=== PATIENT | male | born 1965 | race Caucasian/White ===

== ENCOUNTER 2016-04-16 13:29 | Emergency (ER) | payer OTHER ==
--- NOTE | 2016-04-16 14:36 | REP ---
Clinical: Trauma . Comparison: None . Findings: The ventricles, sulci, and cisterns are normal in position and appearance. Brand-white differentiation is maintained. No acute intracranial hemorrhage, mass/mass effect, pathology or trauma/injury. No evidence for acute infarction. No extra-axial fluid collection. Calvarium is intact. Paranasal sinuses and mastoid air cells are clear. Impression: Normal noncontrast head CT. No evidence for acute intracranial pathology or trauma/injury. Signed by Skyler Villanueva MD 04/16/2016 02:27 P
--- NOTE | 2016-04-16 14:37 | REP ---
Clinical: Trauma. Technique: Axial noncontrast images from the skull base to the thoracic inlet with coronal and sagittal re-formations. Findings: Alignment and lordosis maintained. No acute fracture / compression injury or subluxation. Moderate multilevel degenerative changes include anterior osteophytes with endplate sclerosis and minimal disc space narrowing primarily involving the C4-5, C5-6, C6-7 levels as well as the C3-4 level. Spinal canal is patent posterior elements and spinous processes are intact. Paravertebral soft tissues are normal. Impression: Moderate to early advanced multilevel degenerative changes. No acute fracture / compression injury or subluxation. Signed by Skyler Villanueva MD 04/16/2016 02:29 P
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
--- NOTE | 2016-04-16 14:57 | EDDOCDS ---
Physician Documentation [facility] Name: Juan Costello Age: 50 yrs Sex: Male : 1965 Arrival Date: 04/16/2016 Time: 13:29 Bed TR8 Private MD: Disposition: 04/16/16 14:49 Discharged to Home/Self Care. Impression: Postconcussional syndrome, Strain of muscle, fascia and tendon at neck level. - Condition is Stable. - Discharge Instructions: Post-Concussion Syndrome, Cervical Sprain. - Prescriptions for Naprosyn 500 mg Oral Tablet - take 1 tablet by ORAL route 2 times per day take with food; 30 tablet. - Medication Reconciliation form. - Follow up: Ruth Ann Lora MD; When: Call to arrange an appointment; Reason: Recheck today's complaints, Continuance of care, To establish care. Follow up: Desmond Decker; When: Call to arrange an appointment; Reason: Recheck today's complaints, Continuance of care, To establish care. - Problem is an ongoing problem. - Symptoms are unchanged. Historical: - Allergies: No known drug Allergies; - Home Meds: 1. bee pollen oral cap daily (Last dose: 04/16/2016 08:00) 2. Aleve 220 mg Oral tab (Last dose: 04/15/2016) 3. tizanidine 2 mg oral cap nightly (prescribed to take up to 4 x/day) for Muscle Spasm &#13(Last dose: 04/15/2016 20:00) - PMHx: none; - PSHx: plastic surgery to face as child; - Social history: Smoking status: Patient states was never smoker of tobacco. Patient uses alcohol weekly. Patient/guardian denies using street drugs, No barriers to communication noted, The patient speaks fluent Chinese, Speaks appropriately for age. - Family history: Not pertinent. - : The pt / caregiver states he / she is not on anticoagulants. Home medication list is obtained from the patient. - Exposure Risk Screening:: None identified. Vital Signs: 04/16 13:31 BP 162 / 95; Pulse 81; Resp 18; Temp 96.3(O); Pulse Ox 100% ; Weight 72.57 kg / 159.99 lr2 lbs (R); Height 5 ft. 5 in. (165.10 cm) (R); Pain 6/10; 14:50 BP 144 / 98; Pulse 58; Resp 18; Temp 99.2(TE); Pulse Ox 99% on R/A; Pain 6/10; ar3 13:31 Body Mass Index 26.62 (72.57 kg, 165.10 cm) lr2 MDM: 14:16 CT Head Without Contrast Ordered. EDMS 14:17 CT Spine,Cervical W/o Contrast Ordered. EDMS Signatures: Dispatcher [employer] EDMS Maida Madden, RN RN ttb Garrett Chopra, PA-C PA-C cc10 Dinora Escobar,RN RN ms18 MTDD
--- NOTE | 2016-04-18 15:57 | EDDOCDS ---
Physician Documentation [facility] Name: Juan Costello Age: 50 yrs Sex: Male : 1965 Arrival Date: 04/16/2016 Time: 13:29 Bed TR8 Private MD: Disposition: 04/16/16 14:49 Discharged to Home/Self Care. Impression: Postconcussional syndrome, Strain of muscle, fascia and tendon at neck level. - Condition is Stable. - Discharge Instructions: Post-Concussion Syndrome, Cervical Sprain. - Prescriptions for Naprosyn 500 mg Oral Tablet - take 1 tablet by ORAL route 2 times per day take with food; 30 tablet. - Medication Reconciliation form. - Follow up: Ruth Ann Lora MD; When: Call to arrange an appointment; Reason: Recheck today's complaints, Continuance of care, To establish care. Follow up: Desmond Decker; When: Call to arrange an appointment; Reason: Recheck today's complaints, Continuance of care, To establish care. - Problem is an ongoing problem. - Symptoms are unchanged. Historical: - Allergies: No known drug Allergies; - Home Meds: 1. bee pollen oral cap daily (Last dose: 04/16/2016 08:00) 2. Aleve 220 mg Oral tab (Last dose: 04/15/2016) 3. tizanidine 2 mg oral cap nightly (prescribed to take up to 4 x/day) for Muscle Spasm &#13(Last dose: 04/15/2016 20:00) - PMHx: none; - PSHx: plastic surgery to face as child; - Social history: Smoking status: Patient states was never smoker of tobacco. Patient uses alcohol weekly. Patient/guardian denies using street drugs, No barriers to communication noted, The patient speaks fluent Mosotho, Speaks appropriately for age. - Family history: Not pertinent. - : The pt / caregiver states he / she is not on anticoagulants. Home medication list is obtained from the patient. - Exposure Risk Screening:: None identified. Vital Signs: 04/16 13:31 BP 162 / 95; Pulse 81; Resp 18; Temp 96.3(O); Pulse Ox 100% ; Weight 72.57 kg / 159.99 lr2 lbs (R); Height 5 ft. 5 in. (165.10 cm) (R); Pain 6/10; 14:50 BP 144 / 98; Pulse 58; Resp 18; Temp 99.2(TE); Pulse Ox 99% on R/A; Pain 6/10; ar3 13:31 Body Mass Index 26.62 (72.57 kg, 165.10 cm) lr2 MDM: 14:16 CT Head Without Contrast Ordered. EDMS 14:17 CT Spine,Cervical W/o Contrast Ordered. EDMS 14:59 [facility] Payment Agreement was scanned into [employer] and attached to record. jp5 14: Financial registration complete. jp5 14: [facility] was scanned into [employer] and attached to record. jp5 14: Undo -Financial registration. jp5 Financial registration complete. jp5 04/17 10:14 T-Sheet-- Draft Copy was scanned into [employer] and attached to record. gb Signatures: Dispatcher [employer] EDIN Miracle Li, Reg Reg gb Maida Madden, RN RN ttb Garrett Chopra PA-C PA-C cc10 Dinora Escobar,RN RN ms18 Sofía Griffin jp5 The chart was reviewed and I authenticate all verbal orders and agree with the evaluation and treatment provided.Attachments: 04/16 14:59 [facility] Payment Agreement jp5 04/17 10:14 T-Sheet-- Draft Copy gb Chart Complete MTDD
--- NOTE | 2016-04-18 15:57 | EDDOCDS ---
Physician Documentation [facility] Name: Juan Costello Age: 50 yrs Sex: Male : 1965 Arrival Date: 04/16/2016 Time: 13:29 Bed TR8 Private MD: Disposition: 04/16/16 14:49 Discharged to Home/Self Care. Impression: Postconcussional syndrome, Strain of muscle, fascia and tendon at neck level. - Condition is Stable. - Discharge Instructions: Post-Concussion Syndrome, Cervical Sprain. - Prescriptions for Naprosyn 500 mg Oral Tablet - take 1 tablet by ORAL route 2 times per day take with food; 30 tablet. - Medication Reconciliation form. - Follow up: Ruth Ann Lora MD; When: Call to arrange an appointment; Reason: Recheck today's complaints, Continuance of care, To establish care. Follow up: Desmond Decker; When: Call to arrange an appointment; Reason: Recheck today's complaints, Continuance of care, To establish care. - Problem is an ongoing problem. - Symptoms are unchanged. Historical: - Allergies: No known drug Allergies; - Home Meds: 1. bee pollen oral cap daily (Last dose: 04/16/2016 08:00) 2. Aleve 220 mg Oral tab (Last dose: 04/15/2016) 3. tizanidine 2 mg oral cap nightly (prescribed to take up to 4 x/day) for Muscle Spasm &#13(Last dose: 04/15/2016 20:00) - PMHx: none; - PSHx: plastic surgery to face as child; - Social history: Smoking status: Patient states was never smoker of tobacco. Patient uses alcohol weekly. Patient/guardian denies using street drugs, No barriers to communication noted, The patient speaks fluent Icelandic, Speaks appropriately for age. - Family history: Not pertinent. - : The pt / caregiver states he / she is not on anticoagulants. Home medication list is obtained from the patient. - Exposure Risk Screening:: None identified. Vital Signs: 04/16 13:31 BP 162 / 95; Pulse 81; Resp 18; Temp 96.3(O); Pulse Ox 100% ; Weight 72.57 kg / 159.99 lr2 lbs (R); Height 5 ft. 5 in. (165.10 cm) (R); Pain 6/10; 14:50 BP 144 / 98; Pulse 58; Resp 18; Temp 99.2(TE); Pulse Ox 99% on R/A; Pain 6/10; ar3 13:31 Body Mass Index 26.62 (72.57 kg, 165.10 cm) lr2 MDM: 14:16 CT Head Without Contrast Ordered. EDMS 14:17 CT Spine,Cervical W/o Contrast Ordered. EDMS 14:59 [facility] Payment Agreement was scanned into [employer] and attached to record. jp5 14: Financial registration complete. jp5 14: [facility] was scanned into [employer] and attached to record. jp5 14: Undo -Financial registration. jp5 Financial registration complete. jp5 04/17 10:14 T-Sheet-- Draft Copy was scanned into 1,2,3 [employer] and attached to record. gb Signatures: Dispatcher [employer] EDAR Miracle Li, Reg Reg gb Maida Madden, RN RN ttb Garrett Chopra PA-C PA-C cc10 Dinora Escobar,RN RN ms18 Sofía Griffin jp5 The chart was reviewed and I authenticate all verbal orders and agree with the evaluation and treatment provided.Attachments: 04/16 14:59 [facility] Payment Agreement jp5 04/17 10:14 T-Sheet-- Draft Copy gb Chart Complete MTDD
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
== END 2016-04-16 14:56 | disposition home or self-care (01) ==
LOC: M ED 13:29
DX: S16.1XXA Strain of muscle, fascia and tendon at neck level, initial encounter (principal); V49.40XA Driver injured in collision with unspecified motor vehicles in traffic accident, initial encounter; Y92.410 Unspecified street and highway as the place of occurrence of the external cause; Y93.89 Activity, other specified; Y99.8 Other external cause status; F07.81 Postconcussional syndrome

== ENCOUNTER → 2016-05-22 | Outpatient (REF) | payer OTHER ==
[2016-05-22 20:07] LABS: FREE T4 0.93 NG/DL (0.76-1.46); TOTAL PROTEIN 7.8 GM/DL (6.4-8.2)
[2016-05-24 12:12] LABS: ALBUMIN 4.63 GM/DL (3.29-5.55); ALBUMIN % 59.4 % (55.8-66.1); GAMMA GLOBULIN % 17.1 % (11.1-18.8)
== END ==
LOC: M LABNEURO 17:01
PROVIDERS: ATTEND Psychiatry & Neurology Neurology
DX: I73.9 Peripheral vascular disease, unspecified (principal); G89.29 Other chronic pain; M54.2 Cervicalgia; M54.5 Low back pain

== ENCOUNTER → 2017-01-08 | Outpatient (CLI) | payer OTHER ==
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
== END ==
LOC: M PAIN 09:30
PROVIDERS: ATTEND Nurse Practitioner Family
DX: G89.29 Other chronic pain (principal); M51.26 Other intervertebral disc displacement, lumbar region; M54.16 Radiculopathy, lumbar region; M46.96 Unspecified inflammatory spondylopathy, lumbar region; K21.9 Gastro-esophageal reflux disease without esophagitis; Z79.899 Other long term (current) drug therapy

== ENCOUNTER → 2017-02-06 | Outpatient (CLI) | payer OTHER ==
[~2017-02-06] MED LIST: BUPIVACAINE HCL 0.25% 30 ML VIAL As Ordered; ISOVUE-M 300 61% 15ML VIAL (Q9967) As Ordered; LIDOCAINE 1% SDV INJ 30 ML VIAL As Ordered; TRIAMCINOLONE ACETONIDE SUSP 40 MG/ML VIAL (J3301) As Ordered
== END ==
LOC: M PAIN 08:45
DX: G89.29 Other chronic pain (principal); M47.816 Spondylosis without myelopathy or radiculopathy, lumbar region; M47.817 Spondylosis without myelopathy or radiculopathy, lumbosacral region
CPT/HCPCS: J3301

== ENCOUNTER → 2017-02-21 | Outpatient (CLI) | payer OTHER | LOC: M PAIN 10:00 | DX: M47.816 Spondylosis without myelopathy or radiculopathy, lumbar region (principal); M47.817 Spondylosis without myelopathy or radiculopathy, lumbosacral region; Z79.899 Other long term (current) drug therapy; Z87.820 Personal history of traumatic brain injury | CPT/HCPCS: G0463 ==

== ENCOUNTER → 2017-06-04 | Outpatient (CLI) | payer OTHER | LOC: M PAIN 10:15 | DX: M47.816 Spondylosis without myelopathy or radiculopathy, lumbar region (principal); M47.817 Spondylosis without myelopathy or radiculopathy, lumbosacral region; M54.16 Radiculopathy, lumbar region; M46.1 Sacroiliitis, not elsewhere classified; F07.81 Postconcussional syndrome; Z79.899 Other long term (current) drug therapy | CPT/HCPCS: G0463 ==

== ENCOUNTER → 2017-06-06 | Outpatient (CLI) | payer OTHER | LOC: M PAIN 10:30 | DX: M51.16 Intervertebral disc disorders with radiculopathy, lumbar region (principal); M51.17 Intervertebral disc disorders with radiculopathy, lumbosacral region; G89.29 Other chronic pain; F07.81 Postconcussional syndrome; Z79.899 Other long term (current) drug therapy | CPT/HCPCS: G0463 ==

== ENCOUNTER 2021-04-23 23:42 | Emergency (ER) | payer OTHER, SELFPAY ==
[2021-04-24 00:14] LABS: ABG BASE EXCESS -4.7 (-2.0-2.0); ABG O2 SATURATION 94.3 % (95.0-99.0); ABG PARTIAL PRESSURE CO2 41.2 mmHg (35.0-45.0); ABG PARTIAL PRESSURE O2 81.5 mmHg (75.0-100.0); ABG STANDARD HCO3 20.5 MEQ/L (22.0-26.0); ABG TOTAL CO2 22.3 MEQ/L (22.0-29.0); ABG pH (ARTERIAL) 7.325 UNITS (7.350-7.450)
[2021-04-24 00:16] LABS: BASO # 0.1 10^3/uL (0.0-0.2); BASO % 0.7 % (0.0-1.0); EOS # 0.3 10^3/uL (0.0-0.5); HEMATOCRIT 44.9 % (42.0-52.0); HEMOGLOBIN 15.5 g/dl (13.5-17.5); LYMPH % 49.2 % (24.0-44.0); MEAN CORPUSCULAR HEMOGLOBIN 32.6 pg (27.0-33.0); MEAN CORPUSCULAR HGB CONC 34.5 g/dl (32.0-36.5); MEAN CORPUSCULAR VOLUME 94.3 fl (80.0-96.0); MONO # 0.6 10^3/uL (0.0-0.8); MONO % 7.4 % (2.0-8.0); NEUTROPHILS # 3.2 10^3/uL (1.5-8.5); NEUTROPHILS % 39.2 % (36.0-66.0); PLATELET COUNT, AUTOMATED 295 10^3/uL (150-450); RED BLOOD COUNT 4.76 10^6/uL (4.30-6.10); WHITE BLOOD COUNT 8.2 10^3/uL (4.0-10.0)
[2021-04-24 00:27] LABS: INR 0.94
[2021-04-24 00:44] LABS: CK-MB VALUE MASS < 1.0 NG/ML (<3.6); CPK CREATINE PHOSPHOKINASE 125 U/L (39-308)
[2021-04-24 00:45] LABS: ALBUMIN 3.9 GM/DL (3.2-5.2); ALT/SGPT 53 U/L (12-78); BILIRUBIN,DIRECT < 0.1 MG/DL (0.0-0.2); BILIRUBIN,TOTAL 0.5 MG/DL (0.2-1.0); BLOOD UREA NITROGEN 9 MG/DL (7-18); CALCIUM LEVEL 8.6 MG/DL (8.5-10.1); CARBON DIOXIDE LEVEL 26 MEQ/L (21-32); CHLORIDE LEVEL 100 MEQ/L (98-107); CREATININE FOR GFR 1.06 MG/DL (0.70-1.30); GLOMERULAR FILTRATION RATE > 60.0 (>56); GLUCOSE, FASTING 140 MG/DL (70-100); NT-PRO BNP 31 PG/ML (<125); SODIUM LEVEL 136 MEQ/L (136-145); TOTAL PROTEIN 7.8 GM/DL (6.4-8.2)
[2021-04-24 01:15] VITALS: BP 135/85
[2021-04-24 01:24] LABS: ETHYL ALCOHOL (ETHANOL) 0.363 % (0.000-0.010)
[2021-04-24] MEDS ORDERED: HOME MED LIST COMPLETE! XX SCH (01:45)
[2021-04-24] MEDS ORDERED: ISOVUE-370 76% 100ML VIAL As Ordered ONE (02:04)
== END 2021-04-24 02:43 | disposition left against medical advice (07) ==
LOC: M ED 23:42
DX: F10.229 Alcohol dependence with intoxication, unspecified (principal); Y90.1 Blood alcohol level of 20-39 mg/100 ml; J69.0 Pneumonitis due to inhalation of food and vomit; R09.02 Hypoxemia; U07.1 COVID-19; F12.20 Cannabis dependence, uncomplicated
CPT/HCPCS: 36415; 36600; 70450; 71045; 71275; 80048; 80076; 82077; 82550; 82553; 82803; 83880; 84484; 85025; 85610; 87798; 93005; 93041; 99285; Q9967

== ENCOUNTER 2023-07-24 21:09 | Emergency (ER) | payer SELFPAY ==
[~2023-07-24] VITALS: Ht 162.6 cm; Wt 70.3 kg
[2023-07-24 22:14] LABS: BASO # 0.1 10^3/uL (0.0-0.2); EOS # 0.1 10^3/uL (0.0-0.5); EOS % 1.2 % (0.0-3.0); HEMATOCRIT 42.1 % (42.0-52.0); HEMOGLOBIN 14.8 g/dl (13.5-17.5); LYMPH # 2.2 10^3/uL (1.5-5.0); LYMPH % 36.9 % (24.0-44.0); MEAN CORPUSCULAR HEMOGLOBIN 33.9 pg (27.0-33.0); MEAN CORPUSCULAR HGB CONC 35.2 g/dl (32.0-36.5); MEAN CORPUSCULAR VOLUME 96.3 fl (80.0-96.0); MONO # 0.4 10^3/uL (0.0-0.8); MONO % 7.5 % (2.0-8.0); NEUTROPHILS # 3.1 10^3/uL (1.5-8.5); NEUTROPHILS % 53.2 % (36.0-66.0); PLATELET COUNT, AUTOMATED 150 10^3/uL (150-450); RED BLOOD COUNT 4.37 10^6/uL (4.30-6.10); WHITE BLOOD COUNT 5.8 10^3/uL (4.0-10.0)
[2023-07-24] MEDS: NS 1,000 ML IV ONE (22:30)
[2023-07-24 22:49] LABS: BLOOD UREA NITROGEN 9 MG/DL (9-23); CALCIUM LEVEL 8.1 MG/DL (8.5-10.1); CARBON DIOXIDE LEVEL 26 MMOL/L (20-31); CHLORIDE LEVEL 106 MMOL/L (98-107); CREATININE FOR GFR 0.88 MG/DL (0.70-1.30); GLOMERULAR FILTRATION RATE > 60.0 (>56); GLUCOSE, FASTING 104 MG/DL (60-100); POTASSIUM SERUM 3.4 MMOL/L (3.5-5.1); SODIUM LEVEL 141 MMOL/L (136-145)
[2023-07-24 22:50] LABS: CK-MB VALUE MASS < 1.0 NG/ML (<3.6)
[2023-07-24 22:54] LABS: THYROID STIMULATING HORMONE 1.809 uIU/ML (0.55-4.78)
[2023-07-24 22:58] LABS: ETHYL ALCOHOL (ETHANOL) 0.408 % (0.000-0.010)
[2023-07-24 23:12] LABS: CPK CREATINE PHOSPHOKINASE 126 U/L (46-171); MB/CK RELATIVE INDEX 0.79 (< OR =4)
[2023-07-24 23:44] VITALS: BP 159/92; TEMP 98; O2SAT 96
[2023-07-25 00:11] LABS: CK-MB VALUE MASS < 1.0 NG/ML (<3.6)
[2023-07-25 00:16] LABS: CPK CREATINE PHOSPHOKINASE 125 U/L (46-171)
== END 2023-07-24 23:57 | disposition home or self-care (01) ==
LOC: M ED 21:09
DX: F10.129 Alcohol abuse with intoxication, unspecified (principal); I95.9 Hypotension, unspecified

== ENCOUNTER 2024-11-11 18:04 | Emergency (ER) | payer SELFPAY ==
[~2024-11-11] VITALS: Ht 165.1 cm; Wt 61.4 kg
[2024-11-11] MEDS ORDERED: ONDANSETRON 4MG 2ML VIAL As Ordered ONE (18:40)
[2024-11-11] MEDS: ONDANSETRON 4MG 2ML VIAL IV ONE (18:45)
[2024-11-11 19:10] LABS: BASO # 0.0 10^3/uL (0.0-0.2); BASO % 0.3 % (0.0-1.0); EOS # 0.0 10^3/uL (0.0-0.5); EOS % 0.0 % (0.0-3.0); LYMPH # 0.4 10^3/uL (1.5-5.0); LYMPH % 7.2 % (24.0-44.0); MONO # 0.3 10^3/uL (0.0-0.8); MONO % 5.5 % (2.0-8.0); NEUTROPHILS # 5.3 10^3/uL (1.5-8.5); NEUTROPHILS % 86.5 % (36.0-66.0); PLATELET COUNT, AUTOMATED 108 10^3/uL (150-450)
[2024-11-11 19:21] LABS: INR 1.14
[2024-11-11] MEDS: LIDOCAINE W/EPINEPHrine 1% 20 ML VIAL SC ONE (19:30)
[2024-11-11 19:50] LABS: CALCIUM LEVEL 9.0 MG/DL (8.3-10.6); CARBON DIOXIDE LEVEL 32 MMOL/L (20-31); CHLORIDE LEVEL 95 MMOL/L (98-107); CREATININE FOR GFR 0.69 MG/DL (0.70-1.30); GLOMERULAR FILTRATION RATE > 90.0 (>49); POTASSIUM SERUM 3.1 MMOL/L (3.5-5.1); SODIUM LEVEL 138 MMOL/L (136-145)
[2024-11-11 21:00] VITALS: BP 169/97
[2024-11-11] MEDS ORDERED: ONDA-282 PO (21:01)
[2024-11-11 21:04] VITALS: O2SAT 96
[2024-11-11] MEDS: ONDANSETRON 4MG ORAL DISINTEGRATING TAB PO ONE (21:12)
[2024-11-11] MEDS: POTASSIUM CHLORIDE 10MEQ SR TABLET PO ONE (21:13)
[2024-11-11 21:15] VITALS: TEMP 100.1
== END 2024-11-11 21:21 | disposition home or self-care (01) ==
LOC: M ED 18:04
DX: S01.01XA Laceration without foreign body of scalp, initial encounter (principal); S06.0XAA Concussion with loss of consciousness status unknown, initial encounter; W10.8XXA Fall (on) (from) other stairs and steps, initial encounter; Y92.009 Unspecified place in unspecified non-institutional (private) residence as the place of occurrence of the external cause; Y93.9 Activity, unspecified; Y99.9 Unspecified external cause status; K64.9 Unspecified hemorrhoids; F12.10 Cannabis abuse, uncomplicated
CPT/HCPCS: 12002; 70450; 72125; 80047; 80048; 85025; 85610; 86850; 86900; 86901; 96374; 99284; J2405